=== PATIENT | male | born 1935 | race Caucasian/White ===

== ENCOUNTER 2016-11-23 22:35 | Emergency (ER) | payer MEDICARE, OTHER ==
[~2016-11-23] VITALS: Ht 182.9 cm; Wt 88.2 kg
[~2016-11-23 22:35] MED LIST: ASPI-973 PO; ATOR20TA65 PO; CHOL400T PO; CIPR-231 PO; DOCU250C2 PO; DOXA8TAB73 PO; ETOD400T2 PO; FLUT16SP NS; PHN100C PO; PRIM250T PO; TRAM50TA2 PO; VIT1CAPS10 PO
[2016-11-23 23:14] VITALS: BP 171/66; PULSE 91; RESP 18; O2SAT 96
--- NOTE | 2016-11-23 23:31 | ED.REPORT ---
HPI-Extremity Problem Upper Date of Service Nov 23, 2016 ED Provider: Jun Reyes DO Patient is an 81 year old male with a history of hypertension who presents to the ED complaining of left shoulder pain after a mechanical fall that occurred this evening. He denies losing consciousness, problems walking, headache, numbness or weakness. The patient reports that he hit his head but that it was a minor hit. He states that his shoulder hit the floor first and then his head. Patient takes 81mg of ASA daily. Nursing Notes Stated Complaint: L SHOULDER PAIN S/P FALL Chief Complaint: Extremity Trauma Nursing Notes Reviewed: Yes Allergies: Coded Allergies: No Known Drug Allergies (Verified Allergy, Unknown, 11/17/15) Scheduled Aspirin (Aspirin) 81 Mg Tablet 81 MG PO DAILY Atorvastatin Calcium (Atorvastatin Calcium) 20 Mg Tablet 20 MG PO HS Cholecalciferol (Vitamin D3) (Vitamin D3) 400 Unit Tablet 1,000 UNIT PO DAILY Ciprofloxacin (Cipro) 500 Mg Tablet 500 MG PO BID Doxazosin Mesylate (Doxazosin Mesylate) 8 Mg Tablet 8 MG PO HS Etodolac ER (Etodolac ER) 400 Mg Tab.er.24h 400 MG PO BID Fluticasone Propionate (Fluticasone Propionate Nasal) 16 Gm [place].susp 1 SPRAY NS BID Phenytoin Sodium ER (Dilantin) 100 Mg Cap 200 MG PO BID Primidone (Primidone) 250 Mg Tablet 250 MG PO QAM Primidone (Primidone) 250 Mg Tablet 500 MG PO HS Vit A/Vit C/Vit E/Zinc/Copper (Preservision Areds Softgel) 1 Each Capsule 1 EACH PO BID Scheduled PRN Docusate Sodium (Docusate Sodium) 250 Mg Capsule 250 MG PO DAILY PRN PRN For Constipation General Time Seen by MD: 23:31 Chief Complaint Shoulder injury left Hx Obtained From: Patient Arrived By: Walk-in Onset Occurred: Just prior to arrival Symptom Duration: Since onset Caused by: Accidental, Fall on ground Location: : Shoulder left Quality: Painful Severity: Current: Moderate Exacerbated by: Movement Similar Sx Previous: No Past Medical History Past Medical History previous UTIs incomplete bladder emptying BPH anxiety erectile dysfunction skin cancer macular degeneration pulmonary fibrosis throid nodule interstitial lung disease Reports: Hypertension Reports: Depression Past Surgical History shoulder surgery right thyroid lobectomy cataract extraction Reports: Appendectomy Smoking History Former Smoker Social History Alcohol Use: 1-3 per day Other Social History: Good social support, , Local resident Ambulatory Status Independent Review of Systems Constitutional: Denies: Chills, Fever Musculoskeletal: Reports: Extremity pain (left shoulder) Skin: Denies Itching, Denies Rash Neurologic: Denies: Change LOC, Numbness, Problem walking, Weakness Complete sys rev & neg: except as marked. Respiratory: Denies: Non-productive cough, Shortness of breath Physical Exam Initial Vital Signs Vital Signs (First) Date Time Temp Pulse Resp B/P Pulse Ox O2 Delivery O2 Flow Rate FiO2 11/23/16 23:14 36.7 91 18 171/66 96 Room Air Initial VS: Reviewed General/Constitutional: Awake, Alert Respiratory / Chest: Atraumatic, Breath sounds NL, Breath sounds = bilat, No respiratory distress Cardiovascular: Heart rate NL, Regular rhythm, Heart sounds NL Upper Extremity / MS: Neurologic intact, Vascular intact Left Shoulder: Positive: Deformity present, ROM reduced Skin: Atraumatic, Color NL, No rash, Warm, Dry Neurologic: Oriented X3, Speech NL Head / Eyes: Atraumatic, Normocephalic, PERRL, EOMI Psychiatric: Affect NL, Mood NL Interpretation & Diagnostics X-Ray Chest Interpretation Chest Xray Interpretation: no acute findings View: Portable, 1 view Interpretation / Wet Read by: Interpret - ED physician X-Ray Interpretation Xray Interpretation: left proximal humerus fracture X-Ray Ordered: Humerus left Interpretation / Wet Read by: Interpret - ED physician Procedures Splint Application - Fx Mgt Time: 01:02 Procedure Performed by: School Occupational Therapist Precise Anatomic Location: left shoulder Type of Immobilization: Sling Definitive Fracture Care: Pain control Post-Procedure / Complications: Cap refill normal, Post splint vascular nl, Post splint neuro nl, Condition improved, Tolerated procedure well, Patient stable Re-Eval/Medical Decision Re-Evaluation/Progress : Time of Eval: 01:01 Re-Evaluation/Progress Note: Discussed results and plan for discharge. Patient understands and agrees to plan. All questions were addressed. Consultation : Consulted With: Orthopedic Requested Call at: 01:07 Note: Voicemail left with ortho office regarding patient follow up Counseled Regarding: Diagnosis, Lab results, Need for follow-up, When/why to return to ED Discharge & Departure Impression: Primary Impression: Closed fracture of left proximal humerus Encounter type: initial encounter Fracture morphology: unspecified fracture morphology Qualified Code: S42.202A - Unspecified fracture of upper end of left humerus, initial encounter for closed fracture Disposition: Home Discharge Condition All VS Reviewed: Yes Condition: Stable Patient Instructions: Proximal Humerus Fracture (ED), Splint Care (ED) Additional Instructions: Your X-ray showed evidence of a shoulder fracture. Keep the arm in the splint until you follow up with the referred orthopedic doctor. Call the referred orthopedic surgeon tomorrow to schedule an appointment You can take 1-2 Stebbins every 6 hours as needed for pain. Do not drink alcohol or drive while taking the pain medication. Do not combine with acetaminophen. Follow up with your primary care physician next week. Return to the emergency department if you develop any new or concerning symptoms. Referrals: Nery Adorno MD (PCP) Alonso Sinclair MD (Family) Zachary Lynn Attestation Portions of this note were transcribed by Nicky Alcantar. I, Dr. Reyes personally performed the history, physical exam and medical decision-making; I reviewed and confirmed the accuracy of the information in the transcribed note. Signed by: Kirby Nunes, 11/23/16 copies to: Zachary Lynn Todd P DO Nov 23, 2016 23:31 Hanna Alcantar Nov 23, 2016 23:35
[2016-11-23] MEDS ORDERED: Ondansetron 8 mg ODT Tablet PO ONE (23:35)
[2016-11-23] MEDS ORDERED: _HYDROcodone/APAP 5-325 mg Tablet PO PRN (23:35)
[2016-11-23] MEDS ORDERED: oxyCODONE-Acetamin 5-325 mg Tablet PO ONE (23:35)
[2016-11-24 01:22] VITALS: BP 136/63; PULSE 88; RESP 16; O2SAT 94
--- NOTE | 2016-11-24 15:01 | DRSVH ---
PROCEDURE: X-RAY CHEST ONE VIEW, PORTABLE ([id number]) INDICATIONS: FALL, PAIN TECHNIQUE: One view of the chest was acquired. COMPARISON: [facility], CR, XR SHOULDER MIN 2VW LT, 11/23/2016, 23:28. [facility], CR, XR CHEST 1VW (PORTABLE), 11/17/2015, 18:42. FINDINGS: Surgical changes and devices: None. Lungs and pleura: No pleural effusions or pneumothorax. Diffuse, widespread bilateral interstitial opacities are present unchanged from prior examination and are chronic. No definite acute process is seen. Mediastinum: Mediastinal contours appear normal. Heart size is normal. Bones and chest wall: Left humeral proximal shaft fracture is present and completely visualized. Sev ere left shoulder arthropathy. IMPRESSION: 1. Chronic interstitial lung disease. 2. Left humeral proximal shaft fracture incompletely visualized. Dictated by: Donovan BARTON Interpreted: Rebecca Moon MD on 11/24/2016 at 8:40 Approved by: Rebecca Moon M.D. on 11/24/2016 at 15:00
--- NOTE | 2016-11-24 15:01 | DRSVH ---
PROCEDURE: X-RAY LEFT SHOULDER, MINIMUM TWO VIEWS ([id number]) INDICATIONS: fall, deformity TECHNIQUE: 3 views of the shoulder were acquired. COMPARISON: [facility], CR, XR CHEST 1VW (PORTABLE), 11/23/2016, 23:55. FINDINGS: Bones: Oblique fracture extends through the proximal shaft of the left humerus with mild lateral disp lacement of the distal fracture component. Severe glenohumeral joint degeneration. Chronic intersti tial opacities visualized within the left lung. Soft tissues: No suspicious soft tissue calcifications. IMPRESSION: Mild laterally displaced proximal left humeral fracture. Dictated by: Donovan BARTON Interpreted: Rebecca Moon MD on 11/24/2016 at 8:43 Approved by: Rebecca Moon M.D. on 11/24/2016 at 14:59
== END 2016-11-24 01:20 | disposition home or self-care (01) ==
LOC: SED 22:35
DX: S42.292A Other displaced fracture of upper end of left humerus, initial encounter for closed fracture (principal); W01.0XXA Fall on same level from slipping, tripping and stumbling without subsequent striking against object, initial encounter; Y93.01 Activity, walking, marching and hiking; Y99.8 Other external cause status; Y92.010 Kitchen of single-family (private) house as the place of occurrence of the external cause; I10 Essential (primary) hypertension; Z87.09 Personal history of other diseases of the respiratory system; Z87.440 Personal history of urinary (tract) infections; Z87.891 Personal history of nicotine dependence; Z90.89 Acquired absence of other organs; Z79.82 Long term (current) use of aspirin